=== PATIENT | male | born 1980 | race Caucasian/White ===

== ENCOUNTER 2016-11-05 08:10 | Emergency (ER) | payer OTHER ==
--- NOTE | 2016-11-05 08:56 | ED Physician Documentation ---
History of Present Illness - Stated complaint Stated Complaint: COUGHING - Chief complaint Chief Complaint: Resp - Additonal information Additional information: hx from pt 34 healthy 36 y/o [place] male cough for about a week sone with same prior to [place] - CXR neg - rx albuterol MDI and tessalon cannot stop his incessant dry non productive cough and cannot get a deep breath to use MDI Review of Systems Constitutional: denies: Fever, Chills Respiratory: reports: Cough GI: denies: Vomiting, Diarrhea Immunocompromised: denies: Immunocompromised PD PAST MEDICAL HISTORY - Present Medications Home Medications: Ambulatory Orders Medication Instructions Recorded Confirmed Metoprolol Succinate [Toprol Xl] 100 mg PO DAILY 11/05/16 11/05/16 guaiFENesin/CODEINE [Robitussin AC] 5 - 10 ml PO Q6H PRN #120 udc 11/05/16 predniSONE [Deltasone] 60 mg PO DAILY 5 Days 11/05/16 - Allergies Allergies/Adverse Reactions: Allergies Allergy/AdvReac Type Severity Reaction Status Date / Time Sulfa (Sulfonamide Allergy Unknown Verified 11/05/16 08:30 Antibiotics) sulfamethoxazole Allergy Unknown Verified 11/05/16 08:30 [From Bactrim] trimethoprim [From Bactrim] Allergy Unknown Verified 11/05/16 08:30 PD ED PE NORMAL - Vitals Vital signs reviewed: Yes - HEENT HEENT: Ears normal, Moist mucous membranes - Cardiac Cardiac: RRR - Respiratory Respiratory: No respiratory distress, Other (dry cough, no whoop) - Extremities Extremities: No edema, No calf tenderness / cord - Neuro Neuro: Alert and oriented X 3 Results - Vitals Vitals: Vital Signs - 24 hr 11/05/16 08:15 Temperature 37.0 C Heart Rate 92 Respiratory 20 Rate Blood Pressure 136/93 H O2 Saturation 97 Oxygen O2 Source Room air Departure - Departure Disposition: 01 Home, Self Care Clinical Impression: Bronchitis Condition: Good Instructions: ED URI Viral Follow-Up: JARON Alejandre [Provider Group] Prescriptions: predniSONE [Deltasone] 60 mg PO DAILY 5 Days guaiFENesin/CODEINE [Robitussin AC] 5 - 10 ml PO Q6H PRN #120 udc PRN Reason: Cough Comments: Try the robitussin with codeine in addition to the tessalon pearls for the cough Add the steroid to decrease airway inflammation Use the spacer with your inhaler so you can get more of the medication into your lungs Follow up with your PMD about your blood pressure - it was high today Forms: Activity restrictions
[2016-11-05] MEDS ORDERED: guaiFENesin/CODEINE 5 ML UDC ONE (09:00)
[2016-11-05] MEDS ORDERED: predniSONE 20 MG TABLET ONE (09:00)
[2016-11-05] MEDS: predniSONE 20 MG TABLET PO STA (09:01)
[2016-11-05] MEDS: guaiFENesin/CODEINE 5 ML UDC PO STA (09:02)
[2016-11-05 09:27] VITALS: BP 138/88
== END 2016-11-05 09:08 | disposition home or self-care (01) ==
LOC: ED 08:10
DX: J40 Bronchitis, not specified as acute or chronic (principal)
CPT/HCPCS: 94664; 99283